=== PATIENT | male | born 1995 | race Caucasian/White ===

== ENCOUNTER 2018-02-09 11:03 | Emergency (ER) | payer OTHER, SELFPAY ==
[2018-02-09 11:04] VITALS: BP 101/56; PULSE 79; RESP 17; TEMP 37.2; O2SAT 100; BMI 24.3
--- NOTE | 2018-02-09 11:13 | CT_ITS ---
STUDY: CT ABDOMEN AND PELVIS WITH CONTRAST REASON FOR EXAM: Male, 22 years old. Trauma, lower abdominal pain and left groin pain RADIATION DOSAGE (If Supplied By Facility): CTDIvol = ( 12.65 ) mGy, DLP = ( 761.72 ) mGycm TECHNIQUE: Transaxial images were obtained from the dome of the diaphragm to the symphysis pubis without oral contrast. 100 ml of Isovue 300 contrast was administered. Sagittal and coronal images were reconstructed. Individualized dose optimization techniques were used for this CT. COMPARISON: 01/29/2016 FINDINGS: The visualized lung bases are unremarkable. The visualized portions of the heart are within normal limits. Normal liver. Normal gallbladder and extrahepatic biliary system. Normal spleen. Normal pancreas. Normal bilateral adrenal glands. Normal right kidney. Normal left kidney. Normal visualized stomach. Normal small intestine. Normal colon. The appendix is visualized and appears normal. Normal abdominal aorta. Normal inferior vena cava. Normal retroperitoneum. Normal urinary bladder. There is slight asymmetry to the lower aspect of the rectus abdominis muscles, with the left slightly cote than the right. No drainable fluid collection. Remote compression deformities are seen at T12 and L1. These were present on the prior study. CT/Abdomen/Pelvis W IV Cont ONLY IMPRESSION: No bowel obstruction or acute renal pathology. No traumatic solid organ abnormality. Slight asymmetry to the lower rectus abdominis muscles, slightly more full on the left. Question edema. No drainable fluid collection. Remote compression deformities at T12 and L1. Electronically Signed: Boston Rios DO at 12:08 EDT Tel , Service support ,
[2018-02-09] MEDS: 0.9% Normal Saline 1,000 ML 125 ML IV (11:17)
--- NOTE | 2018-02-09 11:19 | ED.VISSUMM ---
- ER Visit Summary Date of Service: 02/09/18 Chief Complaint: Groin injury History of Present Illness: The patient is a 22 M presents to the emergency department with injury to his left groin. Patient was helping someone cut down a tree. He was in a harness. The tree snapped and pulled his harness. He went directly into the tree with his left pelvis. He did not strike his testicles. This happened about an hour ago. Since then, he has had some increasing pain in his upper pubic area. It does not radiate down his legs. He denies any trouble urinating. He denies any trauma to the penis. He takes no daily medications. He denies any back pain. Physical Examination: Vital signs reviewed General: Well-nourished, well-developed Head: Normocephalic, atraumatic Eyes: Pupils equal and reactive, extraocular muscles intact Neck, supple, no lymphadenopathy Heart: Regular rate and rhythm Respiratory: No distress, clear bilaterally Abdomen: Soft, mildly tender below the suprapubic area with some ecchymosis just in the left pubic area, nondistended, no peritoneal signs exam: Normal external genitalia, no testicular tenderness, no testicular injury Back: Nontender Extremities: Nontender, no edema, no cords, 2+ symmetric femoral pulses Skin: Normal color no rash Neuro: Alert and oriented, no focal or lateralizing deficits Test Results: [] Emergency Department Course and Treatment: Patient's external genital exam was within normal limits. He did have contusion and slight hematoma over the left pubic area. With his mechanism, I did obtain a CT of the abdomen and pelvis. This did confirm hematoma of the abdominal musculature, but there was no deep injury. Patient urinated without any blood. He was given Toradol and had improvement. He is able to ambulate without pain. At this time, due to the patient is safe for discharge. Family is comfortable with plan of care. Treatment Plan: [] Disposition: Discharge Impression: 1. Abdominal wall hematoma status post trauma This note was generated with [employer] dictation software. It may contain incorrect words, spelling, and punctuation that were not noted in review of the chart prior to signing ED Disposition - Plan for ED Patient: Disposition: Home or Assisted Living Chief Complaint: Trauma Instructions: ED Abdominal Injury Blunt Benign Prescriptions: Naproxen [Naprosyn] 500 mg PO BID PRN #20 tab Cyclobenzaprine [Flexeril] 10 mg PO TID PRN #20 tab PRN Reason: Muscle Spasm Referrals: Lamin Duque [Primary Care Provider] -
[2018-02-09 11:43] LABS: Anion Gap 7 (5-15); BUN 18 mg/dL (7-18); BUN/Creat Ratio 15.7 RATIO (10-20); Chloride 107 mmol/L (98-107); Creatinine, Serum 1.15 mg/dL (0.70-1.30); EST Glomerular Filtration Rate 83 mL/min (>60); Est Glom Filt Rate - Afr Amer 101 mL/min (>60); Glucose 109 mg/dL (74-106); Potassium 4.4 mmol/L (3.5-5.1); Sodium Level 137 mmol/L (136-145)
[2018-02-09 11:44] LABS: Absolute Lymphocyte Count 1.51 X10^3/ul (0.83-4.51); Absolute Neutrophil Count 10.1 X10^3/uL (2.0-7.7); Basophil# 0.03 X10^3/uL; Basophil% 0.2 % (0-1); Eosinophil# 0.04 X10^3/uL; Eosinophils% 0.3 % (0-5); Hematocrit 43.9 % (40-54); Hemoglobin 15.6 g/dl (13.0-16.5); Lymphocyte # 1.51 X10^3/ul (4.0); Lymphocyte % 12.1 % (19-41); Mean Corp Hgb Conc 35.5 g/gl (32-36); Mean Corpuscular Hgb 31.1 pg (27.0-32.0); Mean Corpuscular Volume 87.6 fL (80-94); Mean Platelet Vol. 9.5 fl (6.2-12.0); Monocyte# 0.82 X10^3/uL; Monocyte% 6.5 % (0-10); Neutrophil % 80.7 % (47-70); Platelet Count 306 K/mm3 (150-450); RBC Distribution Width CV 12.5 % (11.6-14.6); RBC Distribution Width SD 40.1 fl (35.1-43.9); Red Blood Count 5.01 M/mm3 (4.6-6.2); White Blood Count 12.5 K/mm3 (4.4-11.0)
[2018-02-09] MEDS: Ketorolac 30 MG/ML Syringe IV (11:53)
[2018-02-09 12:09] LABS: POSITIVE COUNT NO; POSITIVE DIFFERENTIAL NO; POSITIVE MORPHOLOGY NO
[2018-02-09 12:48] LABS: Bacteria 0 SEEN /hpf (None Seen); Mucous, Urine 0 SEEN /hpf (<or=2+); Red Blood Cells-Urine 0 SEEN /hpf (0-5); Squamous Epithelial Cells - UA 0 SEEN /hpf (0-5); White Blood Cells 0 SEEN /hpf (0-5)
[2018-02-09 12:51] LABS: Color, Urine Yellow (Yellow); Glucose, Dipstick Normal (Normal); Ketone-Dipstick Negative (Negative); Leukocyte Esterase-Dipstick Negative /ul (Negative); Nitrite-Dipstick Negative (Negative); Occult Blood-Urine Negative /ul (Negative); Protein-Dipstick Negative (Negative); Urine Bilirubin Dipstick Negative (Negative); Urine Clarity Clear (Clear); Urine Urobilinogen Normal (Normal)
[2018-02-09 13:19] VITALS: BP 107/69; PULSE 96; RESP 16; O2SAT 100
== END 2018-02-09 13:20 | disposition home or self-care (01) ==
LOC: ED 11:23
PROVIDERS: Emergency Provider Emergency Medicine; Family Provider Family Medicine; PCP Family Medicine
DX: S30.1XXA Contusion of abdominal wall, initial encounter (principal); W22.8XXA Striking against or struck by other objects, initial encounter; Y93.9 Activity, unspecified; Y92.9 Unspecified place or not applicable
CPT/HCPCS: 74177; 80048; 81001; 85025; 96361; 96374; 99285; J7030; Q9967; A4216

== ENCOUNTER 2019-07-29 08:11 | Emergency (ER) | payer OTHER, SELFPAY ==
[2019-07-29] VITALS (11 sets, daily range): BP systolic 121–151; BP diastolic 55–79; PULSE 78–111; RESP 16–24; TEMP 36.6–36.7; O2SAT 95–100; BMI 25.0
--- NOTE | 2019-07-29 08:24 | RAD_ITS ---
STUDY: X-RAY - RIGHT ANKLE REASON FOR EXAM: Male, 24 years old. fell about 25 feet from a ladder today TECHNIQUE: 4 view(s) of the ankle. COMPARISON: None. FINDINGS: Acute comminuted posteriorly angulated oblique fracture of the distal shaft of the fibula. Acute transverse avulsion fractures of the base of medial malleolus of the tibia. Lateral subluxation of the tibiotalar joint. Normal visualized talus and calcaneus. The visualized subtalar, talonavicular, calcaneocuboid and tarsal articulations are normal. The soft tissue structures are unremarkable. RAD/Ankle 2 Views IMPRESSION: Acute lateral subluxation of the tibiotalar joint with a transverse avulsion fractures of the base of the medial malleolus and a comminuted oblique fracture of the distal shaft of the fibula. Electronically Signed: Frank Workman MD at 9:25 EST Tel , Service support ,
--- NOTE | 2019-07-29 08:24 | RAD_ITS ---
STUDY: X-RAY - RIGHT TIBIA AND FIBULA REASON FOR EXAM: Male, 24 years old. fell about 25 feet from a ladder today TECHNIQUE: 2 view(s) of the tibia and fibula were obtained. COMPARISON: None. FINDINGS: Acute distracted transverse avulsion fracture the base of the medial malleolus of the tibia. Acute slightly posteriorly angled comminuted oblique fracture the distal shaft of fibula. The soft tissue structures are unremarkable. RAD/Tibia & Fibula 2 Views IMPRESSION: Acute distracted transverse avulsion fracture the base of the medial malleolus of the tibia. Acute slightly posteriorly angulated comminuted oblique fracture of the distal shaft of the fibula. Electronically Signed: Frank Workman MD at 9:31 EST Tel , Service support ,
--- NOTE | 2019-07-29 08:25 | ED.DCSUM_ITS ---
History of Present Illness Chief Complaint: Fall Informant: Patient Onset: Today Mechanism/Context: Fall Quality of Pain: Dull, Aching Location: Right leg and ankle Current Severity: Mild Maximum Severity: Severe Worsened by: Attempt to move right lower extremity Associated Symptoms: Loss of function, Inability to ambulate. Negative for: Parasthesias, Weakness, Loss of consciousness Length of loss of consciousness: Negative Narrative: Patient is a 34-year-old male who presents after a fall from ladder. He states he was 25 feet above the ground. He states he attempted to roll. He landed predominantly on his right foot. He complains of pain in his right leg and ankle. He denies right knee, hip or low back pain. He denies pain in his upper extremities or left lower extremity. He denies head trauma. Denies neck pain. He denies paresthesia, anesthesia motors. He states he is unable to put any weight. Any movement of the right foot causes him pain. He last ate at 0700. He had a bowl of cereal. He reports no allergies. He is on no medication. Prior similar symptoms: No Recent Illness/Hospitalization: No - Past Medical History (1) No significant past medical history Status: Acute Past Medical History - Allergies and Home Meds Allergies/Adverse Reactions: Allergies No Known Allergies Allergy (Verified 07/29/19 08:14) Primary Care Physician: Lamin Duque [Primary Care Provider] - Prior records reviewed: Yes - Back fracture Surgical History: no surgical history Lives: With Family Smoking Status: Never smoker Alcohol: Occasional Drugs: None Review of Systems General: Denies: Chills, Fever, Sweats Eyes: Denies: Visual changes - bilaterally, Blurred Vision - bilaterally, Diplopia ENT: Reports: - - He denies ear pain or decreased hearing. Denies: Bilateral ear pain, Rhinorrhea, Sore throat Cardiovascular: Denies: Chest pain, Palpitations Respiratory: Denies: Dyspnea, Cough, Dyspnea on exertion Gastrointestinal: Denies: Abdominal pain, Nausea, Vomiting, Diarrhea, Melena, Hematochezia Genitourinary: Denies: Dysuria, Hematuria, Frequency Musculoskeletal: Reports: Swelling, Extremity Pain. Denies: Myalgias, Arthralgias, Neck pain, Back pain Skin: Denies: Rash, Wounds Neurological: Denies: Weakness, Parasthesia, Numbness Hematologic: Denies: Easy bruising, Easy bleeding Physical Exam Vital Signs/Narrative: Vital Signs Temp Pulse Resp BP Pulse Ox 07/29/19 08:13 98 F 79 16 124/76 H 95 Inital Vital Signs reviewed: Yes General: Well nourished, Well developed Head: Normocephalic, Atraumatic. Negative for: Trauma, Tenderness Eyes: Perrl, EOMI. Negative for: Pale conjunctiva, Scleral icterus ENT: TM's clear, No hemotympanum or drainage, No trauma, - - There is no clinical findings of basilar skull fracture.. Negative for: Hemotympanum, Otorrhea, Nasal trauma, Nasal septal hematoma Neck: Nontender, Full ROM. Negative for: Spinal Tenderness, Paraspinal Tenderness Cardiovascular: Regular rate, Regular rhythm, No murmurs, Normal S1, Normal S2 Respiratory: No distress, CTA bilaterally, Chest nontender. Negative for: Diminished, Decreased Air Movement Abdomen: Soft, Nontender, Nondistended, Normal bowel sounds, - - There is no pain the patient of the pelvis. Rectal: Deferred Back: Nontender. Negative for: CVA Tenderness - Right, CVA Tenderness - Left, Spinal Tenderness, Paraspinal Tenderness Extremeties: There is swelling with instability of the ankle. There is pain palpation mid to distal third of the right fibula. DP and PT pulse are palpable. There is no pain the patient base of the fifth metatarsal. There is no pain the patient over the right patella, there is no joint line tenderness. Unable to perform stress test because of instability of ankle. There is no pain the patient over the right greater trochanteric region. There is no pain the patient over the iliac wing, ischio tuberosity or pubic symphysis. Skin: Normal color, No rash, Trauma. Negative for: Cyanosis, Diaphoresis, Jaundice, No Trauma Neurological: Alert, Oriented x3, Cranial nerves II-XII grossly intact, Normal Strength, Normal Sensation. Negative for: Normal Gait - Glascow Coma Scale Eye Opening: Spontaneous Motor: Obeys Commands Verbal: Oriented Coma Scale Total: 15 Diagnostic/Tx/Re-eval Chest X-Ray - ED: Read by ED Physician 2 view x-ray of the right tibia and fibula were obtained as well as 3 view x-ray of the ankle. There is a comminuted slightly angulated distal fibular shaft fracture and there is a displaced medial malleolus fracture. Time of my interpretation 0908. Will page orthopedics since patient will require operative intervention Impressions Ankle X-Ray 07/29/19 08:24 IMPRESSION: Acute lateral subluxation of the tibiotalar joint with a transverse avulsion fractures of the base of the medial malleolus and a comminuted oblique fracture of the distal shaft of the fibula. Electronically Signed: Frank Workman MD at 9:25 EST Tel , Service support , 07/29/19 08:24 Ankle 2 Views [RAD] Stat Tibia & Fibula 2 Views [RAD] Stat 07/29/19 11:22 Xray Tibia [Tibia & Fibula 2 Views] [RAD] Stat Postreduction film was obtained. There is displacement of the fibular fracture on the lateral view. The medial malleolus is still displaced. It is improved. - Medical Decision Making X-ray of the ankle and tib-fib were obtained because there is concern for Maissonneuve fracture. Patient is presently covered in mud. Will need to undress completely and perform repeat secondary exam once he is on clothes. IV was established and he was treated with 4 mg of morphine and 15 mg of Toradol IV push. Case was discussed with orthopedics who referred me to podiatry. Spoke with Dr. Choi who is on-call for the group. Procedures - Lower Extremity Splints Lower Extremity Splint: Orthoglass, Stirrup, - - And posterior short leg Splint Fabrication: Fabricated Location: Right Procedure(s): She was consented for procedural sedation using propofol. The propofol was administered by me. Patient was explained risk benefits of propofol. He has no contraindication. Appropriate paperwork was completed. Timeout was performed before starting the procedure. Please read nurses notes for the amount administered. Patient was placed in a sugar tong and posterior Ortho-Glass splint for immobilization. He is still complaining of discomfort. I was informed that he had a drop in his blood pressure. He received 500 cc of normal saline. Start time for procedure 1050 end time 1111 ED Disposition - Plan for ED Patient: Disposition: Home or Assisted Living Diagnosis: Displaced fracture of medial malleolus of right tibia, initial encounter for closed fracture, Displaced comminuted fracture of shaft of right fibula, initial encounter for closed fracture Instructions: FRACTURE, Ankle (General) Prescriptions: Oxycodone HCl/Acetaminophen [Percocet 5/325] 1 tablet PO Q6H PRN PRN 5 Days #20 tablet PRN Reason: Pain Transmission Status: Sent to [id number] Referrals: Lamin Duque [Primary Care Provider] - Richy Choi DPM [STAFF PHYSICIAN] - As soon as possible
[2019-07-29] MEDS: Ketorolac 15 MG/ML Vial IV (08:34)
[2019-07-29] MEDS: Ondansetron 4 MG/2 ML Vial IV (08:34)
[2019-07-29] MEDS: Morphine 4 MG/ML Syringe IV (08:34)
[2019-07-29] MEDS: Propofol 200 MG/20 ML Vial IV BOLUS (10:52)
--- NOTE | 2019-07-29 11:22 | RAD_ITS ---
STUDY: X-RAY - RIGHT TIBIA AND FIBULA REASON FOR EXAM: Male, 24 years old. POST REDUCTION TECHNIQUE: 2 view(s) of the tibia and fibula were obtained. COMPARISON: 07/29/2019 at 08 50 FINDINGS: No change in the distracted transverse avulsion fracture through the base of the medial malleolus of the tibia. No change in the comminuted dorsally angulated oblique fracture the distal shaft of the fibula. Fiberglas cast which is greater soft tissue and bony detail. RAD/Tibia & Fibula 2 Views IMPRESSION: No change in fracture the medial malleolus of the tibia and the distal shaft of the fibula. Electronically Signed: Frank Workman MD at 12:18 EST Tel , Service support ,
[2019-07-29] MEDS: fentaNYL 100 MCG/2 ML Ampul 50 MCG IV (11:23)
== END 2019-07-29 12:36 | disposition home or self-care (01) ==
PROVIDERS: Emergency Provider Emergency Medicine; PCP Family Medicine
DX: S82.51XA Displaced fracture of medial malleolus of right tibia, initial encounter for closed fracture (principal); S82.431A Displaced oblique fracture of shaft of right fibula, initial encounter for closed fracture; W11.XXXA Fall on and from ladder, initial encounter; Y93.9 Activity, unspecified; Y92.9 Unspecified place or not applicable
CPT/HCPCS: 27762; 27781; 29515; 73590; 73600; 96361; 96374; 96375; 99152; 99285; J7030; J7040; A4216; J2405

== ENCOUNTER → 2019-07-29 16:49 | Outpatient (CLI) | payer OTHER, SELFPAY ==
[2019-07-29 08:13] VITALS: BMI 25.0
[2019-07-29 17:40] LABS: Absolute Lymphocyte Count 1.51 X10^3/uL (0.83-4.51); Absolute Neutrophil Count 11.8 X10^3/uL (2.0-7.7); Basophil# 0.04 X10^3/uL; Basophil% 0.3 % (0-1); Eosinophil# 0.01 X10^3/uL; Eosinophils% 0.1 % (0-5); Hematocrit 45.5 % (40-54); Hemoglobin 15.2 g/dL (13.0-16.5); Lymphocyte # 1.51 X10^3/ul (4.0); Lymphocyte % 10.4 % (19-41); Mean Corp Hgb Conc 33.4 g/dL (32-36); Mean Corpuscular Hgb 30.2 pg (27.0-32.0); Mean Corpuscular Volume 90.5 fL (80-94); Mean Platelet Vol. 9.9 fl (6.2-12.0); Monocyte# 1.07 X10^3/uL; Monocyte% 7.4 % (0-10); NRBC Flagged by Analyzer 0 % (0-5); Neutrophil # 11.81 X10^3/uL (2.7-7.7); Neutrophil % 81.4 % (47-70); Platelet Count 298 K/mm3 (150-450); RBC Distribution Width CV 12.6 % (11.6-14.6); RBC Distribution Width SD 41.2 fl (35.1-43.9); Red Blood Count 5.03 M/mm3 (4.6-6.2); White Blood Count 14.5 K/mm3 (4.4-11.0)
[2019-07-29 18:18] LABS: Anion Gap 6 (5-15); BUN 14 mg/dL (7-18); BUN/Creat Ratio 13.1 RATIO (10-20); Calcium,Total 9.4 mg/dL (8.5-10.1); Chloride 105 mmol/L (98-107); Creatinine, Serum 1.07 mg/dL (0.70-1.30); EST Glomerular Filtration Rate 89 mL/min (>60); Est Glom Filt Rate - Afr Amer 108 mL/min (>60); Glucose 102 mg/dL (74-106); Sodium Level 139 mmol/L (136-145)
== END ==
PROVIDERS: PCP Family Medicine; Referring Provider Podiatrist; Visit Provider Podiatrist
DX: Z01.818 Encounter for other preprocedural examination (principal); S82.891A Other fracture of right lower leg, initial encounter for closed fracture
CPT/HCPCS: 36415; 80048; 85025

== ENCOUNTER 2019-07-31 17:03 | Inpatient (IN) | payer OTHER, SELFPAY ==
[2019-07-29 08:13] VITALS: BMI 25.0
[2019-07-31] VITALS (11 sets, daily range): BP systolic 121–145; BP diastolic 66–86; PULSE 57–115; RESP 16–18; TEMP 36.9–37.4; O2SAT 92–100; BMI 24.7; BMI 25.4
[2019-07-31] MEDS: Lactated Ringers 1,000 ML 75 ML IV ×2 (12:25→22:57)
[2019-07-31] MEDS: Cefazolin 2 GM in 0.9% Normal Saline 100 ML IV (13:29)
--- NOTE | 2019-07-31 13:55 | RAD_ITS ---
STUDY: X-RAY - RIGHT ANKLE REASON FOR EXAM: Male, 24 years old. ORIF OF FIBULAR FX AND LATERAL MALLEOLAR FX -- -- 211.1 SECONDS OF FLUORO -- 5.93 mGy DOSE TECHNIQUE: 9 fluoroscopic view(s) of the ankle. 211.1 seconds of fluoroscopic time. COMPARISON: Prior ankle radiographs of July 29, 2019 FINDINGS: Anatomic alignment of the comminuted distal diaphyseal fracture of the fibula with lateral plate and screw fixation. Anatomic realignment and stabilization of the fracture through the base of the medial malleolus with 2 partially threaded malleolar screws. Syndesmotic fixation transversely through the distal tibia and fibula. Normal tibiotalar alignment at the completion of the procedure. Normal intraoperative soft tissue changes. RAD/Ankle min 3 Views IMPRESSION: Anatomic realignment of the distal diaphyseal fracture of the fibula with plate and screw hardware, realignment and fixation of the fracture of the distal tibia through the base of the medial malleolus with 2 partially threaded malleolar screws and syndesmotic fixation. Normal fracture and ankle alignment at the completion of the procedure. Electronically Signed: Holly Delgadillo MD at 21:10 EST , Service support ,
[2019-07-31] MEDS: Bupivacaine Mpf 0.5% 30 ML VIAL (16:55)
[2019-07-31] MEDS: Ketorolac 30 MG/ML Syringe IV (17:07)
--- NOTE | 2019-07-31 17:18 | PCM.OPRPT ---
Problem List (1) Closed displaced comminuted fracture of shaft of right fibula Status: Acute (2) Displaced fracture of medial malleolus of right tibia, initial encounter for closed fracture Status: Acute (3) Right ankle pain Status: Acute Report of Operation Date of Procedure: 07/31/19 Pre-Operative Diagnosis: Right fibular shaft fracture. Right medial malleolus fracture. Syndesmosis disruption of right ankle suspected Post-Operative Diagnosis: Right fibular shaft fracture. Right medial malleolus fracture. Syndesmosis disruption of right ankle with dislocation Surgery/Procedure Performed:: Open reduction internal fixation of fibula shaft, right. Open reduction internal fixation of medial malleolus fracture, right. Repair distal tibia-fibula syndesmosis disruption with tight rope fixation, right Description of Surgical Findings:: Hemostasis: Well-padded pneumatic right thigh tourniquet, 315 mmHg, 120 minutes Materials: 2-0 Vicryl, 3-0 nylon, one Arthrex eight hole plate with two 3.5 cortical screws and three 3.5 locking screws, two syndesmosis Arthrex tight ropes, two 4.0 cannulated short threaded screws Specimens: None Complications: None The patient tolerated the procedure and anesthesia well. He was transported to the PACU with vital signs stable and vascular status intact to the right lower extremity. He will be transferred to the medical surgical floor for observation and for pain control overnight. His postoperative orders were entered electronically. Postoperative x-rays were reviewed prior to leaving the operating room and demonstrates reduced ankle deformity in anatomic alignment with internal fixation place in desired trajectory and position. The ankle mortise is well aligned. There are no acute injuries. assistant corporation counsel: none - Surgeon:Precious Portillo DPM. Finisher Wallboard And Plasterboard: Eyad Beltran PGY1 Type of Anesthesia:: General/Regional - Right lower extremity, Local - Postoperative: 10 cc 0.5% Marcaine plain administered in saphenous nerve block, right Specimen's removed: none Estimated Blood Loss (mL): <150 mL Description of Procedure: Indications: This is a 24-year-old male with no known significant past medical history sustained a comminuted displaced fibular shaft and medial malleolus fracture with syndesmotic disruption to the right lower extremity. 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 He has pain on palpation to the fracture site. This was unstable at the time of injury and was adequately reduced while in the emergency room and splinted. X-rays demonstrate fibula shaft fracture with comminution, shortening and displacement. There is also a transverse medial malleolus ankle fracture with lateral displacement of the talus onto the tibia with some additional widening of the distal tibia and fibula. No fracture blisters were noted. His neurovascular status was intact. Preoperative indications, planned procedure, possible benefits, risk, complications, and anticipated healing time management were discussed in detail with patient. He understands and elects to proceed with surgery at this time. No guarantees were made. He understands risk and complications may include but are not limited to the following: pain, swelling, scarring, need for further surgery, infection, delayed or non healing, loss of sensation, hardware failure, loss of limb, function, life, arthritis blood clot, or allergic reaction. I answers his questions. Preoperative history and physical was performed by his primary care physician (Dr. Lamin Duque) and he was cleared without any known medical history or risk. Procedure in detail: The patient was transported to the operating room via cart and placed on the operating table in supine position. Final verification of the patient, surgery, and limb designation was performed via the timeout procedure. The right lower extremity was prepared with a well-padded thigh tourniquet. Anesthesia team initiated general anesthesia. Preoperative antibiotics were administered as ordered. Anesthesia team also administered a popliteal block of the right lower extremity preoperatively. The right lower extremity was prepped and draped in the usual aseptic manner after the limb was bumped and padded to allow good exposure. An Esmarch bandage was used to exsanguinate the limb and the tourniquet was inflated at this time. Surgery began the following manner: Attention was first directed to the distal lateral aspect of the right leg over the fracture site through the skin. Blunt dissection was performed down to the bone layer at the fracture hematoma and care was taken to identify, protect, and retract all neurovascular structures at this point and throughout the remainder of surgery. It was carefully reflected out of the way and a copeland elevator was used to gain good exposure of the fracture hematoma comminuted shortened fracture fragment site. The periosteum was preserved. This was gently mobilized and irrigated. The plate was secured distally with a temporary BB tack. A cortical screw was applied proximal to the 8 hole plate and push pull technique was performed with a lamina case finishing machine adjuster to improve the length of the fibula. Proper AO fixation technique was utilized while this plate was secured as a buttress plate with cortical and locking screws. Proper placement was confirmed with intraoperative fluoroscopy in multiple views. The comminuted shattered central fibula was secured with some Vicryl cerclage application and manual manipulation. This was irrigated. This fibula was now confirmed to be out to a more anatomic length and solid fixation was achieved. The unit moved as one solid unit. Next, attention was directed to the medial aspect of the ankle in which a 4 cm linear incision was made through the skin. Blunt dissection was performed down to the medial malleolus transverse fracture site taking care to identify, protect, and retract all neurovascular structures. The fracture fragment was identified and there was periosteal invagination. This was reflected out of the fragments. Adequate reduction was palpated and visualized with radiographs and held in place with a bone reducing forcep. The ankle joint was well aligned and the fracture fragments were also well aligned without any derotation. Two cortical screws were applied utilizing proper AO fixation technique. Next there was continued apparent laxity between the tibia and the fibula and the decision to place tight rope to reduce the syndesmosis was performed. These were applied according to standard protocol and hand tightness was used to reduce this with the ankle in a neutral position. The patient's ankle joint was taken through passive range of motion and this was smooth and gliding. Intraoperative radiographs were also used to confirm proper placement of the syndesmosis repair. The tourniquet was deflated at this time and brisk capillary refill time was noted to all digits of the right foot. There was no pulsatile bleeding noted. Minimal electrocauterization and direct pressure was used to maintain hemostasis. Deep closure was achieved with Vicryl and the skin was reapproximated utilizing simple and horizontal mattress technique with nylon suture. After procedure: The atient tolerated the procedure and anesthesia well. He was transported to the PACU with vital signs stable and vascular status intact to the right lower extremity. He will be transferred to the medical surgical floor for observation and for postoperative pain management. He will also be provided with IV and oral pain medication if needed. He will ice and elevate for pain inflammation management. He will work with physical and occupational therapy to confirm he can maintain a nonweightbearing status with an assistive device. Intraoperative x-rays were reviewed prior to leaving the operating room as previously. Postoperative orders were entered electronically. Precious Portillo DPM, [facility] [place] - Complications none - Admit VTE Documentation VTE Present on Admission: No VTE Mechan Device Prophylaxis: SCD's VTE Pharm Prophylaxis ordered?: No Reason prophylaxis not ordered:: Procedure Not Indicated
--- NOTE | 2019-07-31 17:35 | RAD_ITS ---
STUDY: X-RAY - RIGHT ANKLE REASON FOR EXAM: Male, 24 years old. post-op right ankle TECHNIQUE: 3 view(s) of the ankle. COMPARISON: Prior ankle radiographs of July 29, 2019 FINDINGS: Anatomic alignment of a comminuted fracture of the distal diaphysis of the fibula repaired with plate and screw hardware. Anatomic reduction of the fracture of the distal tibia across the base of the medial malleolus with 2 partially threaded malleolar screws. Syndesmotic fixation 1.6 cm above and 5.5 cm above the tibial plafond. Normal visualized talus and calcaneus. The visualized subtalar, talonavicular, calcaneocuboid and tarsal articulations are normal. Normal postoperative soft tissue changes. RAD/Ankle min 3 Views IMPRESSION: Anatomic realignment and hardware fixation of distal diaphyseal fracture of the fibula and fracture of the distal tibia across the base of the medial malleolus with syndesmotic fixation as described above. No acute bone, joint or hardware findings. Electronically Signed: Holly Delgadillo MD at 22:35 EST , Service support ,
[2019-07-31] MEDS: Ondansetron 4 MG/2 ML Vial IV (20:47)
--- NOTE | 2019-07-31 21:39 | PCM.HP.STD ---
Problem List (1) Closed displaced comminuted fracture of shaft of right fibula Status: Acute (2) Displaced fracture of medial malleolus of right tibia, initial encounter for closed fracture Status: Acute (3) Right ankle pain Status: Acute History of Present Illness Date of Admission: 07/31/19 Chief Complaint: Right ankle fracture The patient is a 24 year old M with no known significant past medical history that was admitted postoperative right ankle open reduction internal fixation. He sustained a fall from over 20 foot height off of a ladder on 07/29/2019. He denies other injuries at that time. Past Medical History Allergies No Known Allergies Allergy (Verified 07/30/19 14:22) Home Medications: Ambulatory Orders Medication Instructions Recorded Oxycodone HCl/Acetaminophen 1 tab PO Q6H PRN PRN 5 Days #20 tab 07/29/19 [Percocet 5/325] Surgical History: - - Hand tendon repair Lives: Spouse/ Significant Other, With Family Smoking Status: Never smoker Tobacco Use: Non-smoker Alcohol: Occasional - 5 beers per weekend Drugs: None - *Family History Maternal History Items: No pertinent history Paternal History Items: No pertinent history Review of Systems Constitutional: Denies: Chills, Fever Cardiovascular: Denies: Claudication Respiratory: Denies: Shortness of Breath Gastrointestinal: Reports: Nausea. Denies: Vomiting Musculoskeletal: Reports: Joint Tenderness Skin: Denies: Wounds Neurological: Denies: Numbness Hematologic/ Lymphatic: Denies: Hx of blood clot VTE Information - Inpt Only VTE Present on Admission: No VTE Mechan Device Prophylaxis: SCD's VTE Pharm Prophylaxis ordered?: No Reason prophylaxis not ordered:: Procedure Not Indicated Patient Problems: Active and Suspected Problems Closed displaced comminuted fracture of shaft of right fibula (Acute) Displaced fracture of medial malleolus of right tibia, initial encounter for closed fracture (Acute) Right ankle pain (Acute) - Physical Exam Vitals/I&O's: Vital Signs Temp Pulse Resp BP Pulse Ox 98.4 F 91 18 121/73 H 100 07/31/19 21:02 07/31/19 21:02 07/31/19 21:02 07/31/19 21:02 07/31/19 21:02 Oxygen Flow Rate (L/min) 2 Oxygen Delivery Method Room Air Weight: 73.6 kg Body Mass Index (BMI) 25.4 Intake and Output for Last 24 Hours 07/29/19 07/30/19 07/31/19 23:59 23:59 23:59 Intake Total 1110 / 1110 Balance 1110 / 1110 General: Alert, Oriented x3, Cooperative HEENT: Atraumatic, EOMI Oral: Moist Mucosa Lungs: Clear to auscultation Cardiovascular: Regular rate, Regular Rhythm Extremities: No cyanosis, Capillary Refill Less than 3 Seconds, No Calf Tenderness, Edema, Peripheral Pulses Normal - Palpable DP and PT pulses Skin: - - No fracture blisters noted prior to surgery. Ecchymosis was present to the medial ankle. Incisions intact postop to medial lateral ankle Musculoskeletal: No Tenderness to Palpation of Joints or Extremities, No Muscle Wasting Neurological: - - Regional anesthetic block to right lower extremity postop Psych/Mental Status: Normal Affect, Appropriate Current Medications Hydrocodone Bitart/Acetaminophen ([place] 5mg-325mg) 1 - 2 tablet PO Q6H PRN PRN PRN Reason: Pain Score 1-5/10 Docusate Sodium (Colace) 100 mg PO BID PRN PRN PRN Reason: Constipation Famotidine (Pepcid) 20 mg PO BID [facility] Last Admin: 07/31/19 21:07 Dose: Not Given Documented by: Lactated Ringer's () 1,000 mls @ 75 mls/hr IV .[id number] [facility] Last Admin: 07/31/19 12:25 Dose: 75 mls/hr Documented by: Morphine Sulfate () 2 mg IV Q2H PRN PRN PRN Reason: Pain Score 6-10/10 Ondansetron HCl (Zofran) 4 mg IV Q8H PRN PRN PRN Reason: Nausea Last Admin: 07/31/19 20:47 Dose: 4 mg Documented by: Assessment/Plan All Active Problems No significant past medical history (Acute) Closed displaced comminuted fracture of shaft of right fibula (Acute) Displaced fracture of medial malleolus of right tibia, initial encounter for closed fracture (Acute) Right ankle pain (Acute) Postoperative day #0, right open reduction internal fixation of distal fibula shaft fracture, medial malleolus fracture, and distal tibia fibula syndesmosis disruption Right ankle pain He underwent surgical correction this afternoon and was admitted postoperative for pain control. He does have a regional right lower extremity block in place. He also has IV morphine and oral [place] ordered if needed. He was also offered a dose of Toradol in the immediate postoperative setting. To ice and elevate for pain and inflammation management. To maintain a strict nonweightbearing status of the right lower extremity. He will work with physical and occupational therapy tomorrow to confirm he can use his assistive devices properly. X-rays were reviewed postoperatively prior to leaving the operating room and reduction of the injury site was achieved with desired position of hardware. His ankle mortise is intact and there are no additional acute injuries. His postoperative orders were entered electronically. A vitamin D test will be ordered to screen for any deficiency which would potential impact healing potential. I will follow him closely while in house. Please do not hesitate to call if you any questions. Precious Portillo DPM, FACFAS [facility] [phone] code status: full
[2019-07-31] MEDS: Famotidine 20 MG Tablet PO (22:50)
[2019-07-31] MEDS: Docusate Sodium 100 MG Capsule PO (22:50)
[2019-07-31] MEDS: Morphine 2 MG/ML Syringe IV (22:50)
[2019-08-01] VITALS (8 sets, daily range): BP systolic 111–144; BP diastolic 63–95; PULSE 79–104; RESP 16–20; TEMP 36.8–37.4; O2SAT 97–98
[2019-08-01] MEDS: Morphine 2 MG/ML Syringe IV ×2 (02:52→05:05)
[2019-08-01] MEDS: HYDROcodone Bitartrate/Apap 5/325 Tablet PO ×2 (05:55→11:09)
[2019-08-01] MEDS: Ondansetron 4 MG/2 ML Vial IV (05:57)
--- NOTE | 2019-08-01 06:40 | NURSING ---
Sunitha, RN gave patient 2mg Morphine IVP for pain 9/10 at 0505. Later, while in hallway, Sunitha saw patient's mother and she stated I think his block is wearing off, can't we just give him some Fentanyl? Sunitha assured the mother that Fentanyl was not ordered but she could reach out to the podiatry team in regards to more pain relief options. At 0550, Sunitha had Dr. Choi paged through the lathe scalper operator. (He was physician operations superintendent for Dr. Portillo). She then went into patient room and administered (2) [place] at 0555 for pain 10/10. Around 0615, Sunitha was pulled away from the desk, for care of another patient. She informed this RN that Dr. Choi had yet to return call. This RN had Dr. Choi paged via lathe scalper operator at 0619. While on the phone, Dr. Choi informed this RN that he did not feel comfortable ordering pain meds for another physician's patient. He gave this RN two options: 1. He, himself, could notify her in the clinic early this morning regarding pain concerns or 2. This RN could try overriding the lathe scalper operator's instructions and page Dr. Portillo around 0645, as she may be awake at that time. Conversation ended with Dr. Choi at this time and no new orders were given. Patient's mother came out to nurses' station roughly 0622 and wondered where we were in the process of getting her son pain meds. This RN informed her that the surgeon operations superintendent did not feel comfortable giving orders and that the primary physician would be notified. She states this is ridiculous and these doctors need to quit punting! At 0623 the lathe scalper operator was notified that the floor needed to speak with Dr. Portillo, despite her not being operations superintendent. A text was sent to Dr. Portillo per lathe scalper operator. In the mean time, Mr Palmer (patient) called the [facility] charge phone and spoke with this RN. He asked when am I getting more pain meds? I am miserable and wanting to jump out of the bed. This RN assured that we can only give what is ordered and that we were working on the situation. At 0630 this RN called back to lathe scalper operator and let her know that Dr. Portillo had yet to call the floor. She then put this RN directly through to her cellphone. New orders received for 3mg Morphine IVP q2h prn and 30mg Toradol IVP q8h prn. Orders were immediately entered into the computer and this RN called pharmacy to let pharmacist know that these meds needed verified immediately. At 0634, this RN pulled Krystina RN into med room to be a witness to Morphine waste. Before door could shut on way in, patient mother standing in doorway, very upset, stating I have contacted Dr. Lunsford and he has agreed to do another block. I am taking him down now. This RN informed her that new orders for Morphine and Toradol had been received and I would be in immediately to push the meds. She stated Those meds will not do anything. This RN left med room and patient mother already had bed disconnected from wall in room and was steering bed out into hallway. 0635: Dr. Portillo notified by this RN that patient's mother had removed him from the room and took him down to PACU for another block.
[2019-08-01] MEDS: fentaNYL 100 MCG/2 ML Ampul IV (06:47)
[2019-08-01] MEDS: Famotidine 20 MG Tablet PO ×2 (09:24→21:25)
[2019-08-01] MEDS: Ketorolac 30 MG/ML Syringe IV ×2 (09:26→17:32)
[2019-08-01] MEDS: Docusate Sodium 100 MG Capsule PO ×2 (09:26→21:25)
--- NOTE | 2019-08-01 12:54 | PN_ITS ---
Patient Problems: Active and Suspected Problems Closed displaced comminuted fracture of shaft of right fibula (Acute) Displaced fracture of medial malleolus of right tibia, initial encounter for closed fracture (Acute) Right ankle pain (Acute) Subjective: This 24-year-old male with no significant past medical history was seen bedside this afternoon postoperative day #1 right ankle open reduction internal fixation. His pain is controlled at this time. It is noted he had an additional right lower extremity regional block performed this morning. He denies fever, chill, nausea, vomiting, chest pain, shortness of breath, calf pain. - Physical Exam Vitals/I&O's: Vital Signs Temp Pulse Resp BP Pulse Ox 98.3 F 87 16 111/63 97 08/01/19 11:37 08/01/19 11:37 08/01/19 11:37 08/01/19 11:37 08/01/19 11:37 Oxygen Flow Rate (L/min) 2 Oxygen Delivery Method Room Air Weight: 73.6 kg Body Mass Index (BMI) 25.4 Intake and Output for Last 24 Hours 07/30/19 07/31/19 08/01/19 23:59 23:59 23:59 Intake Total 1900 / 1900 1360 / 1360 Output Total 400 / 400 Balance 1900 / 1900 960 / 960 General: Alert, Oriented x3, Cooperative HEENT: Atraumatic Lungs: Clear to auscultation, Normal air movement Cardiovascular: Regular rate, Regular Rhythm Extremities: No cyanosis, Capillary Refill Less than 3 Seconds, No Calf Tenderness - Negative Verdugo sign bilateral lower extremity, Peripheral Pulses Normal - Palpable DP pulse right Skin: - - Dressing and splint to the right lower extremity are clean, dry, and intact without strikethrough or adjacent streaking Musculoskeletal: - - Rectus right ankle in splint. Compartments are soft to palpate right Neurological: - - Lack of epicritic sensation is noted to the right digits consistent with his recent regional block Psych/Mental Status: Normal Affect, Appropriate Laboratory Results 08/01/19 05:25: Vit D 1,25-Dihydroxy Pending Current Medications Hydrocodone Bitart/Acetaminophen ([place] 5mg-325mg) 1 - 2 tablet PO Q6H PRN PRN PRN Reason: Pain Score 1-5/10 Last Admin: 08/01/19 11:09 Dose: 2 tablet Documented by: Docusate Sodium (Colace) 100 mg PO BID PRN PRN PRN Reason: Constipation Last Admin: 08/01/19 09:26 Dose: 100 mg Documented by: Famotidine (Pepcid) 20 mg PO BID [facility] Last Admin: 08/01/19 09:24 Dose: 20 mg Documented by: Ketorolac Tromethamine (Toradol (Bkc)) 30 mg IV Q8H PRN PRN PRN Reason: Pain Score 1-10/10 Stop: 08/06/19 06:34 Last Admin: 08/01/19 09:26 Dose: 30 mg Documented by: Morphine Sulfate () 3 mg IV Q2H PRN PRN PRN Reason: Pain Score 6-10/10 Ondansetron HCl (Zofran) 4 mg IV Q8H PRN PRN PRN Reason: Nausea Last Admin: 08/01/19 05:57 Dose: 4 mg Documented by: Medical Necessity - Tobacco Use Smoking Status: Never smoker Tobacco Use: Non-smoker Assessment/Plan All Active Problems No significant past medical history (Acute) Closed displaced comminuted fracture of shaft of right fibula (Acute) Displaced fracture of medial malleolus of right tibia, initial encounter for closed fracture (Acute) Right ankle pain (Acute) Postoperative day #1 right open reduction internal fixation ankle fracture (fibular shaft, medial malleolus, and syndesmosis disruption) Right ankle pain I reviewed and discussed his case. He is afebrile and his vital signs remained stable. His dressing and splint are intact. His pain is controlled. He had an additional right lower extremity regional block performed this morning and it is anticipated to start wearing off again this evening. IV and oral pain medications were additionally ordered including oral narcotic, IV morphine, and Toradol. I recommend he continues with icing and elevation to control inflammation and pain. To maintain a strict nonweightbearing status to the right lower extremity with assistive device. He did work with physical therapy this morning and it went very well. Upon continued pain control, this patient will be discharged home this evening or tomorrow. He will follow-up with the [facility] in 1 week. Please not hesitate to call if you have any questions. Precious Portillo DPM, FACF[facility] [phone]
[2019-08-01] MEDS: oxyCODONE 5 MG Tablet PO ×2 (16:46→20:46)
[2019-08-01] MEDS: Morphine 4 MG/ML Syringe IV (18:39)
[2019-08-01] MEDS: HYDROmorphone 1 MG/ML Syringe IV ×3 (19:50→23:37)
[2019-08-01] MEDS: LORazepam 1 MG Tablet PO (21:25)
[2019-08-02] VITALS (20 sets, daily range): BP systolic 120–144; BP diastolic 73–88; PULSE 73–91; RESP 14–18; TEMP 36.6–37.5; O2SAT 93–99
[2019-08-02] MEDS: oxyCODONE 5 MG Tablet PO ×3 (01:00→14:41)
[2019-08-02] MEDS: Ketorolac 30 MG/ML Syringe IV ×3 (01:05→16:58)
[2019-08-02] MEDS: HYDROmorphone 1 MG/ML Syringe IV ×4 (01:38→07:38)
[2019-08-02] MEDS: Docusate Sodium 100 MG Capsule PO ×2 (07:54→21:12)
--- NOTE | 2019-08-02 08:53 | NURSING ---
Pain issue overnight. Dilaudid, Oxy, and Toradol all given when available as prn. Mother of patient kept pushing to give the pain meds early. Patient seemed much more relaxed and less painful when mother was out of room. As the night progressed, patient said he was getting relief for the Dilaudid and rated his pain 5/10. Mother was at the nurses station very often overnight concerned with son's pain. Mother called Noa, supervisor specialty plant, into the room. Noa talked with the mother and patient and asked if it was ok to keep doing what we are doing [with Dilaudid, Oxy, and Toradol].
[2019-08-02] MEDS: Famotidine 20 MG Tablet PO ×2 (09:19→21:12)
[2019-08-02] MEDS: LORazepam 1 MG Tablet PO (09:19)
--- NOTE | 2019-08-02 09:25 | NURSING ---
0958 pt requested to talk to Dr Bynum, Dr Choi it covering and he was paged. He deferred to her and she called this nurse, she was informed pain is not being controlled and pt wants to talk to her. She increased Dilaudid, was informed mother requested fentanyl, and was informed that it can be administered on this unit. She wants to increase the Dilaudid first, and will see the pt in a short time and take the drsg down. Dr. Lee talked to patient, discussed the plan with him.
[2019-08-02] MEDS: 0.9% Saline Lock 10 ML Syringe IV ×3 (10:09→16:58)
--- NOTE | 2019-08-02 11:16 | PCM.PROGNOTE ---
Patient Problems: Active and Suspected Problems Closed displaced comminuted fracture of shaft of right fibula (Acute) Displaced fracture of medial malleolus of right tibia, initial encounter for closed fracture (Acute) Right ankle pain (Acute) Subjective: This 24-year-old male with no significant past medical history was seen bedside this afternoon postoperative day #2 right ankle open reduction internal fixation. His pain is rated as a 6 out of 10. I was contacted around 9:10 this morning and informed his pain was not completely controlled overnight and this has recently been exacerbated after a trip to the restroom. I increased Dilaudid dose verbally over the phone. This was administered over an hour ago and he relates he thinks he may be starting to turn a corner however is concerned that this will still not be enough. He describes his pain as a generalized crushing sensation to the ankle. He does not think his splint is too tight however is amendable to have a dressing change to further evaluate for any signs of potential infection, compartment syndrome, nerve irritation, or blood clot. He denies stumbling or falling on the surgical limb. He continues to elevate. He denies fever, chill, nausea, vomiting, chest pain, shortness of breath, calf pain. He relates he uses his incentive spirometer at times. His mother is bedside. She asks if fentanyl can be administered at this time. - Physical Exam Vitals/I&O's: Vital Signs Temp Pulse Resp BP Pulse Ox 98.4 F 90 16 132/80 H 95 08/02/19 05:37 08/02/19 07:50 08/02/19 05:37 08/02/19 05:37 08/02/19 07:01 Oxygen Flow Rate (L/min) 2 Oxygen Delivery Method Room Air Weight: 73.6 kg Body Mass Index (BMI) 25.4 Intake and Output for Last 24 Hours 07/31/19 08/01/19 08/02/19 23:59 23:59 23:59 Intake Total 1899 200 / 200 Output Total 400 / 800 800 / 800 Balance 1899 1610 / 1210 -600 / -600 General: Alert, Oriented x3, Cooperative HEENT: Atraumatic Lungs: Clear to auscultation Cardiovascular: Regular rate, Regular Rhythm Extremities: No cyanosis, No Calf Tenderness - negative tenorio sign right, Edema - moderate to ankle; no leg edema, right lower extremity, Peripheral Pulses Normal - 2/4 PT and DP pulses, right Skin: Incision - well aligned and coapted with sutures intact. no gapping, no infection, no necrosis noted. medial ankle ecchymosis consistent with properative ecchymosis pattern. Skin turgor normal, - - There is no calor, warmth, or edema to the calf Musculoskeletal: No Tenderness to Palpation of Joints or Extremities, Muscle Wasting, - - Active range of motion digits right. Compartments of the lower extremity are soft to palpate. There is no skin tenting. Right lower extremity is in a rectus position Neurological: Sensory exam intact to light touch and pain - Epicritic sensation is intact via light touch to foot and ankle and lower leg dermatomes Psych/Mental Status: Normal Affect, Appropriate Current Medications Bisacodyl (Dulcolax) 10 mg PO .X1 PRN PRN PRN Reason: See label comments Diphenhydramine HCl (Benadryl) 12.5 - 25 mg IV Q6H PRN PRN PRN Reason: ITCHING Diphenhydramine HCl (Benadryl) 12.5 - 25 mg PO Q6H PRN PRN PRN Reason: Pruritis Docusate Sodium (Colace) 100 mg PO BID PRN PRN PRN Reason: Constipation Last Admin: 08/02/19 07:54 Dose: 100 mg Documented by: Famotidine (Pepcid) 20 mg PO BID [facility] Last Admin: 08/02/19 09:19 Dose: 20 mg Documented by: Hydromorphone HCl (Dilaudid Biology Adjunct Instructor) 20 mg IV [facility]; Protocol Naloxone HCl 4 mg/ Dextrose 504 mls @ 0 mls/hr IV .Q0M PRN; Protocol PRN Reason: To maintain Resp. rate >10 Sodium Chloride () 250 mls @ 15 mls/hr IV .[id number] PRN PRN Reason: Saline Flush Last Admin: 08/02/19 10:09 Dose: 15 mls/hr Documented by: Sodium Chloride () 250 mls @ 15 mls/hr IV .[id number] PRN PRN Reason: Additional IVPB Infusion Ketorolac Tromethamine (Toradol (Bkc)) 30 mg IV Q8H PRN PRN PRN Reason: Pain Score 1-10/10 Stop: 08/06/19 06:34 Last Admin: 08/02/19 08:59 Dose: 30 mg Documented by: Lorazepam (Ativan) 1 mg PO Q12H PRN PRN PRN Reason: ANXIETY Last Admin: 08/02/19 09:19 Dose: 1 mg Documented by: Naloxone HCl (Narcan) 0.02 mg IV Q1M PRN PRN Reason: RR <10 and pt unresponsive Ondansetron HCl (Zofran) 4 mg IV Q8H PRN PRN PRN Reason: Nausea Last Admin: 08/01/19 05:57 Dose: 4 mg Documented by: Oxycodone HCl (Oxyir) 5 mg PO Q4H PRN PRN PRN Reason: Pain Score 1-10/04 Last Admin: 08/02/19 05:25 Dose: 5 mg Documented by: Sodium Chloride () 10 - 40 ml IV UD PRN PRN Reason: SALINE FLUSH Last Admin: 08/02/19 10:09 Dose: 40 ml Documented by: Medical Necessity - Tobacco Use Smoking Status: Never smoker Tobacco Use: Non-smoker Assessment/Plan All Active Problems No significant past medical history (Acute) Closed displaced comminuted fracture of shaft of right fibula (Acute) Displaced fracture of medial malleolus of right tibia, initial encounter for closed fracture (Acute) Right ankle pain (Acute) Postoperative day #2 right open reduction internal fixation ankle fracture (fibular shaft, medial malleolus, and syndesmosis disruption) secondary to fall from height mechanism of injury Right ankle pain I reviewed and discussed his case. He is afebrile and his vital signs remained stable. His dressing and splint are intact. IV and oral pain medications have been sequentially increased and modified. He intermittently thinks he is starting to turn a corner however is still struggling. I offered Dilaudid TECHNICAL SOLUTION ARCHITECT and he is amenable to proceed at this time. He will also continue with oral oxycodone and IV Toradol. He is also taking Ativan. I do not recommend administering fentanyl or ketamine at this time as requested by family. I recommend he continues with icing and elevation to control inflammation and pain. I will confirm if pain management consultation is possible on the weekend. His surgical dressing and splint were removed to evaluate the limb and there are no clinical signs of blood clot, infection, isolated nerve entrapment, or compartment syndrome. A new gauze and Kerlix dressing was applied. His previous well-padded posterior mold was placed with the right lower extremity in a rectus position and this was further secured with an Antonio wrap. He was advised to maintain a strict nonweightbearing status to the right lower extremity with assistive device. To use incentive spirometer hourly while awake. Please do not hesitate to call if you have any questions. We will continue to follow him closely while in house. I also verbally reviewed the case with his nurse, Prince. We discussed our next action plan and I requested to be contacted directly if his pain is still not improving. Precious Portillo DPM, FACF[facility] [phone]
--- NOTE | 2019-08-02 11:30 | NURSING ---
[id number]- Spoke to Dr. Portillo on the phone regarding the patient. Notified that patients pain is very tolerable at this time and is not expressing any other issues. Dr. Portillo stated to call her at anytime if pain becomes out of control or if other issues arise.
--- NOTE | 2019-08-02 12:09 | NURSING ---
Called Tonya the pharmacy and asked her to send the Dilaudid bag for experienced truck driver pump. Said she was grabbing it right now.
[2019-08-02] MEDS: HYDROmorphone PCA 0.2 MG/ML 100 ML BAG 20 MG IV (12:36)
--- NOTE | 2019-08-02 16:39 | NURSING ---
1430 Now rates pain 12/04, states it is better, but thinks it could be better. Dr. Lee paged.
[2019-08-02] MEDS: Gabapentin 100 MG Capsule 200 MG PO (18:07)
[2019-08-02] MEDS: Bisacodyl 5 MG Tablet 10 MG PO (18:22)
[2019-08-03] VITALS (23 sets, daily range): BP systolic 117–133; BP diastolic 61–80; PULSE 74–95; RESP 14–18; TEMP 36.9–37.2; O2SAT 94–98
[2019-08-03] MEDS: Gabapentin 100 MG Capsule 200 MG PO ×3 (07:48→16:48)
[2019-08-03] MEDS: Famotidine 20 MG Tablet PO (07:49)
--- NOTE | 2019-08-03 09:28 | NURSING ---
ordnance keeper pump settings verified for Prince PRimary RN. Dilaudid 0.3mg lockout 12minutes.
--- NOTE | 2019-08-03 10:06 | PCM.PROGNOTE ---
Patient Problems: Active and Suspected Problems Closed displaced comminuted fracture of shaft of right fibula (Acute) Displaced fracture of medial malleolus of right tibia, initial encounter for closed fracture (Acute) Right ankle pain (Acute) Subjective: This 24-year-old male with no significant past medical history was seen bedside this morning postoperative day #3 right ankle open reduction internal fixation. His pain is rated as a 2 out of 10. He continues to elevate the surgical limb. He denies fever, chill, nausea, vomiting, chest pain, shortness of breath, or calf pain. He has a little generalized numbness and relates the crushing feeling is going away. He relates he uses his incentive spirometer. He has not had a bowel movement and denied previous constipation. His family is bedside. - Physical Exam Vitals/I&O's: Vital Signs Temp Pulse Resp BP Pulse Ox 98.9 F 81 14 119/61 98 08/03/19 09:59 08/03/19 09:59 08/03/19 09:59 08/03/19 09:59 08/03/19 09:59 Oxygen Flow Rate (L/min) 2 Oxygen Delivery Method Room Air Weight: 73.6 kg Body Mass Index (BMI) 25.4 Intake and Output for Last 24 Hours 08/01/19 08/02/19 08/04/19 23:59 23:59 00:59 Intake Total 2009 500 / 500 987.25 / 987.25 Output Total 400 / 800 2009 Balance 1610 / 1210 -1510 / -1510 987.25 / 987.25 General: Alert, Oriented x3, Cooperative HEENT: Atraumatic Lungs: Clear to auscultation, Normal air movement Cardiovascular: Regular rate, Regular Rhythm Extremities: No cyanosis, Capillary Refill Less than 3 Seconds - all digits right foot, No Calf Tenderness - negative tenorio sign bilateral, Edema - mild right lower extremity, Peripheral Pulses Normal - palpable DP pulse 2/4 right Skin: - - dressing right lower extremity is clean, dry, and intact without strikethrough Musculoskeletal: Tenderness - surgical site, - - AROM digits right foot. Right ankle is in rectus position Neurological: Sensory exam intact to light touch and pain - all digits and foot dermatomes right foot and ankle Psych/Mental Status: Normal Affect, Appropriate Current Medications Bisacodyl (Dulcolax) 10 mg PO .X1 PRN PRN PRN Reason: See label comments Last Admin: 08/02/19 18:22 Dose: 10 mg Documented by: Diphenhydramine HCl (Benadryl) 12.5 - 25 mg PO Q6H PRN PRN PRN Reason: Pruritis Docusate Sodium (Colace) 100 mg PO BID PRN PRN PRN Reason: Constipation Last Admin: 08/02/19 21:12 Dose: 100 mg Documented by: Famotidine (Pepcid) 20 mg PO BID [facility] Last Admin: 08/03/19 07:49 Dose: 20 mg Documented by: Gabapentin (Neurontin) 200 mg PO TIDCM [facility] Last Admin: 08/03/19 07:48 Dose: 200 mg Documented by: Hydromorphone HCl (Dilaudid Reclaimer) 20 [place] [facility] [place] Protocol Last Admin: 08/02/19 12:36 Dose: 20 mg Documented by: Naloxone HCl 4 mg/ Dextrose 504 mls @ 0 mls/hr IV .Q0M PRN; Protocol PRN Reason: To maintain Resp. rate >10 Sodium Chloride () 250 mls @ 15 mls/hr IV .[id number] PRN PRN Reason: Saline Flush Last Admin: 08/03/19 03:38 Dose: 15 mls/hr Documented by: Sodium Chloride () 250 mls @ 15 mls/hr IV .[id number] PRN PRN Reason: Additional IVPB Infusion Ketorolac Tromethamine (Toradol (Bkc)) 30 mg IV Q8H PRN PRN PRN Reason: Pain Score 1-10/10 Stop: 08/06/19 06:34 Last Admin: 08/02/19 16:58 Dose: 30 mg Documented by: Lorazepam (Ativan) 1 mg PO Q12H PRN PRN PRN Reason: ANXIETY Last Admin: 08/02/19 09:19 Dose: 1 mg Documented by: Naloxone HCl (Narcan) 0.02 mg IV Q1M PRN PRN Reason: RR <10 and pt unresponsive Ondansetron HCl (Zofran) 4 mg IV Q8H PRN PRN PRN Reason: Nausea Last Admin: 08/01/19 05:57 Dose: 4 mg Documented by: Oxycodone HCl (Oxyir) 5 mg PO Q6H PRN PRN PRN Reason: Pain Score 6-10/10 Last Admin: 08/02/19 14:41 Dose: 5 mg Documented by: Sodium Chloride () 10 - 40 ml IV UD PRN PRN Reason: SALINE FLUSH Last Admin: 08/02/19 16:58 Dose: 10 ml Documented by: Medical Necessity - Tobacco Use Smoking Status: Never smoker Tobacco Use: Non-smoker Assessment/Plan All Active Problems No significant past medical history (Acute) Closed displaced comminuted fracture of shaft of right fibula (Acute) Displaced fracture of medial malleolus of right tibia, initial encounter for closed fracture (Acute) Right ankle pain (Acute) Postoperative day #3 right open reduction internal fixation ankle fracture (fibular shaft, medial malleolus, and syndesmosis disruption) secondary to fall from height mechanism of injury Right ankle pain I reviewed and discussed his case. He is afebrile and his vital signs remained stable. His dressing and splint are intact. IV and oral pain medications have been sequentially increased and modified. He is doing much better this morning. I recommend he continues with icing and elevation to control inflammation and pain. I recommending we start weaning him off of the ELEVATOR OPERATOR FREIGHT pump this afternoon to transition to oral medications. He is amendable to proceed. The ELEVATOR OPERATOR FREIGHT dose has been decreased and I will call back in later to make serial adjustments. Pain management was consulted who is available for evaluation on Sunday. The case was briefly reviewed via phone yesterday afternoon with this physician and if the patient is still in house on Sunday, the evaluation will be appreciated. Discharge medications have been picked up from [facility] retail pharmacy (percocet and naproxen) and additional medications have been sent to [facility] (neurontin and docusate). He was advised to maintain a strict nonweightbearing status to the right lower extremity with assistive device. To use incentive spirometer hourly while awake. Vitamin D results are still pending. Discharge later today or tomorrow pending continued pain control. Please do not hesitate to call if you have any questions. I will continue to follow him closely while in house. Precious Portillo DPM, FACFAS [facility] [phone]
--- NOTE | 2019-08-03 10:48 | DCINST_ITS ---
Discharge Diet: No Restrictions Discharge Activity: May not drive while taking narcotic pain medications., May Not Shower - unless using shower bag, Use Walker, Use Crutches, - - Use knee roller Weight Bearing Status: No weight bearing Keep extremity elevated above heart level: Right Leg Call your doctor if your incision/area has: Continuous Slow Oozing, Sudden Increased Bleeding, Increased Pain/ Swelling, Increased Redness, Foul Smelling Discharge, Swelling at the incision site Call your doctor if you observe: Fever of 101 or Higher, Coldness, Increased Pain, Numbness or Tingling, Shortness of breath, Chest pain, Calf discomfort, Uncontrolled pain Cleanse incision/area with: Keep Dressing Clean & Dry Allergies/Adverse Reactions: Allergies No Known Allergies Allergy (Verified 07/30/19 14:22) Medications to take at Discharge Oxycodone HCl/Acetaminophen [Percocet 5/325] 1 tab PO Q6H PRN PRN 5 Days #20 tab 07/29/19 Naproxen 500 mg PO BID 7 Days #14 tab 08/01/19 Oxycodone HCl/Acetaminophen [Percocet 10-325 mg Tablet] 1 tab PO Q6H PRN PRN 5 Days #30 tab 08/01/19 Docusate Sodium 100 mg PO BID PRN 10 Days #20 cap 08/03/19 Gabapentin [Neurontin] 200 mg PO TID 10 Days #30 cap 08/03/19 The following prescriptions were given: Docusate Sodium 100 mg PO BID PRN 10 Days #20 cap PRN Reason: Constipation Transmission Status: Received by [id number] Naproxen 500 mg PO BID 7 Days #14 tab Transmission Status: Sent to [facility] Gabapentin [Neurontin] 200 mg PO TID 10 Days #30 cap Transmission Status: Received by [id number] Oxycodone HCl/Acetaminophen [Percocet 10-325 mg Tablet] 1 tab PO Q6H PRN PRN 5 Days #30 tab PRN Reason: Pain Score 6-10/10 Transmission Status: Sent to [facility] Primary Care Physician: Lamin Duque [Primary Care Provider] - Test Results: Test results from this visit will be discussed in further detail at your follow- up appointment, if applicable. Please Follow Up With: Precious Portillo DPM When: 1 week. Call [facility] at [phone] sooner if concerns. Proposed Discharge Date: 08/03/19
--- NOTE | 2019-08-03 10:50 | PCM.DC.SUM ---
Discharge Date and Diagnosis Date of Admission: 07/31/19 Date of Discharge: 08/03/19 - Primary Discharge Diagnosis Active and Suspected Problems Closed displaced comminuted fracture of shaft of right fibula (Acute) Displaced fracture of medial malleolus of right tibia, initial encounter for closed fracture (Acute) Right ankle pain (Acute) - Secondary Discharge Diagnosis no significant past medical history Hospital Course and Treatment Imaging Results: Post operative ankle x-ray (3 view: AP, mortise, lateral): Status post open reduction internal fixation of distal fibula shaft comminuted displaced fracture, medial malleolus fracture, and syndesmosis disruption repair is noted with hardware in place. The fractures are reduced in anatomic position ankle mortise is rectus. There are no acute injuries. The hardware has been placed in the desired trajectory and position. A pain management consultation was requested. Operations: - - Open reduction internal fixation right ankle fracture performed during this admission Procedures: - - Right lower extremity regional block x2 Summary of Care Provided: The patient is a 24 year old M who sustained an injury on 07-29-2019 after he fell from a height of over 20 feet while he was working in his barn. He sustained a closed displaced fibula diaphysis fracture, medial malleolus fracture, and syndesmosis disruption. This was reduced and splinted in the emergency room. He had surgical repair on 07-31-2019 and was admitted postoperatively. He had a regional anesthesia block preoperatively. Pain management was the primary goal of this hospital admission and he was taken through serial progression of pain medication adjustments including dosage and type. His pain was uncontrolled initially. This patient did also have a second right lower extremity regional block performed on day #1 after surgery. This did help temporarily with pain. He was subsequently stabilized with elevation, ice, Dilaudid PIPE MAKER pump, Toradol, oxycodone, and Neurontin. He was also screened and evaluated clinically for any signs of infection, compartment syndrome, blood clot, or isolated neuritis in which these conditions were not suspected. I did reach out to see if a pain management consultation was formally available over the weekend. It is noted pain specialist was not in town however the case was briefly reviewed via phone. Dr. Glover, relates he would be happy to see the patient as a formal consultation if he is still in house on this upcoming Sunday. It is noted during his hospital admission, his mother did reach out separately to other various staff including anesthesiologist, Dr. Lunsford. Only upon being informed of Mr. Palmer's updated status, did I provide serial progression of his current medications and treatment plan. I did also review the case with Dr. Lunsford verbally via phone just prior to his second regional block and also the following day after I was informed by Dr. Lunsford that his mother reached him directly again. Mr. Palmer's pain was subsequently stabilized and he was discharged home on oral pain medications only. During his hospitalization, he was also seen by physical therapy. He demonstrated successful use of assistive device to keep a strict nonweightbearing status to the right lower extremity. - Physical Exam Vitals/I&O's: Vital Signs Temp Pulse Resp BP Pulse Ox 98.9 F 81 14 119/61 98 08/03/19 09:59 08/03/19 09:59 08/03/19 09:59 08/03/19 09:59 08/03/19 09:59 Oxygen Flow Rate (L/min) 2 Oxygen Delivery Method Room Air Weight: 73.6 kg Body Mass Index (BMI) 25.4 Intake and Output for Last 24 Hours 08/01/19 08/02/19 08/04/19 23:59 23:59 00:59 Intake Total 2009 500 / 500 987.25 / 987.25 Output Total 400 / 800 2009 Balance 1610 / 1210 -1510 / -1510 987.25 / 987.25 General: Alert, Oriented x3, Cooperative HEENT: Atraumatic, PERRLA, EOMI Oral: Moist Mucosa Lungs: Clear to auscultation, Normal air movement Cardiovascular: Regular rate, Regular Rhythm Extremities: No cyanosis, Capillary Refill Less than 3 Seconds - All digits right foot, No Calf Tenderness, Edema - Mild surgical limb, Peripheral Pulses Normal - 2/4 PT and DP pulse bilateral lower extremity Skin: Incision - Well aligned and coapted to medial lateral right ankle. There is no gapping, necrosis, erythema or signs of infection to the right lower extremity. The soft tissue or skin of the right lower extremity are not taut and the compartments remain soft. Musculoskeletal: No Muscle Wasting, - - Negative Angela and Verdugo sign bilateral. Active range of motion digits x5 right Neurological: Sensory exam intact to light touch and pain - Foot and ankle dermatomes of the right lower extremity Psych/Mental Status: Normal Affect, Appropriate Current Medications Bisacodyl (Dulcolax) 10 mg PO .X1 PRN PRN PRN Reason: See label comments Last Admin: 08/02/19 18:22 Dose: 10 mg Documented by: Diphenhydramine HCl (Benadryl) 12.5 - 25 mg PO Q6H PRN PRN PRN Reason: Pruritis Docusate Sodium (Colace) 100 mg PO BID PRN PRN PRN Reason: Constipation Last Admin: 08/02/19 21:12 Dose: 100 mg Documented by: Famotidine (Pepcid) 20 mg PO BID [facility] Last Admin: 08/03/19 07:49 Dose: 20 mg Documented by: Gabapentin (Neurontin) 200 mg PO TIDCM [facility] Last Admin: 08/03/19 07:48 Dose: 200 mg Documented by: Hydromorphone HCl (Dilaudid Mold Bunch Trimmer) 20 mg IV [facility] [place]; Protocol Last Admin: 08/02/19 12:36 Dose: 20 mg Documented by: Naloxone HCl 4 mg/ Dextrose 504 mls @ 0 mls/hr IV .Q0M PRN; Protocol PRN Reason: To maintain Resp. rate >10 Sodium Chloride () 250 mls @ 15 mls/hr IV .[id number] PRN PRN Reason: Saline Flush Last Admin: 08/03/19 03:38 Dose: 15 mls/hr Documented by: Sodium Chloride () 250 mls @ 15 mls/hr IV .[id number] PRN PRN Reason: Additional IVPB Infusion Ketorolac Tromethamine (Toradol (Bkc)) 30 mg IV Q8H PRN PRN PRN Reason: Pain Score 1-10/10 Stop: 08/04/19 06:34 Last Admin: 08/02/19 16:58 Dose: 30 mg Documented by: Lorazepam (Ativan) 1 mg PO Q12H PRN PRN PRN Reason: ANXIETY Last Admin: 08/02/19 09:19 Dose: 1 mg Documented by: Naloxone HCl (Narcan) 0.02 mg IV Q1M PRN PRN Reason: RR <10 and pt unresponsive Ondansetron HCl (Zofran) 4 mg IV Q8H PRN PRN PRN Reason: Nausea Last Admin: 08/01/19 05:57 Dose: 4 mg Documented by: Oxycodone HCl (Oxyir) 5 mg PO Q6H PRN PRN PRN Reason: Pain Score 6-10/10 Last Admin: 08/02/19 14:41 Dose: 5 mg Documented by: Sodium Chloride () 10 - 40 ml IV UD PRN PRN Reason: SALINE FLUSH Last Admin: 08/02/19 16:58 Dose: 10 ml Documented by: Discharge Diet: No Restrictions Discharge Activity: May not drive while taking narcotic pain medications., May Not Shower - unless using shower bag, Use Walker, Use Crutches, - - Use knee roller Weight Bearing Status: No weight bearing Keep extremity elevated above heart level: Right Leg Call your doctor if your incision/area has: Continuous Slow Oozing, Sudden Increased Bleeding, Increased Pain/ Swelling, Increased Redness, Foul Smelling Discharge, Swelling at the incision site Call your doctor if you observe: Fever of 101 or Higher, Coldness, Increased Pain, Numbness or Tingling, Shortness of breath, Chest pain, Calf discomfort, Uncontrolled pain Cleanse incision/area with: Keep Dressing Clean & Dry Home Medications: Medications to take at Discharge Oxycodone HCl/Acetaminophen [Percocet 5/325] 1 tab PO Q6H PRN PRN 5 Days #20 tab 07/29/19 Naproxen 500 mg PO BID 7 Days #14 tab 08/01/19 Oxycodone HCl/Acetaminophen [Percocet 10-325 mg Tablet] 1 tab PO Q6H PRN PRN 5 Days #30 tab 08/01/19 Docusate Sodium 100 mg PO BID PRN 10 Days #20 cap 08/03/19 Gabapentin [Neurontin] 200 mg PO TID 10 Days #30 cap 08/03/19 Following Prescrptions Were Given to Patient: Docusate Sodium 100 mg PO BID PRN 10 Days #20 cap PRN Reason: Constipation Transmission Status: Received by [id number] Naproxen 500 mg PO BID 7 Days #14 tab Transmission Status: Sent to [facility] Gabapentin [Neurontin] 200 mg PO TID 10 Days #30 cap Transmission Status: Received by [id number] Oxycodone HCl/Acetaminophen [Percocet 10-325 mg Tablet] 1 tab PO Q6H PRN PRN 5 Days #30 tab PRN Reason: Pain Score 6-03/06 Transmission Status: Sent to [facility] Primary Care Physician: Lamin Duque [Primary Care Provider] - Please Follow Up With: Precious Portillo DPM When: 1 week. Call [facility] at [phone] sooner if concerns. Disposition: Home Patient Condition:: Good Medical Necessity - Tobacco Use Smoking Status: Never smoker Tobacco Use: Non-smoker Meaningful Use Info Meaningful Use Diagnoses (Choose all that apply): None applicable
[2019-08-03] MEDS: Docusate Sodium 100 MG Capsule PO (11:05)
[2019-08-03] MEDS: HYDROmorphone PCA 0.2 MG/ML 100 ML BAG 20 MG IV (13:51)
[2019-08-03] MEDS: Ketorolac 30 MG/ML Syringe IV (15:36)
--- NOTE | 2019-08-03 18:28 | NURSING ---
Spoke with Dr Cardona, stating pt is desiring to go home, has not used dilaudid pump for several hours. She said to dc the infusion now, and she would enter orders for it.
[2019-08-03] MEDS: oxyCODONE 5 MG Tablet PO (18:35)
[2019-08-04 19:27] LABS: Vitamin D 1,25-Dihydroxy 34.9 pg/mL (19.9-79.3)
== END 2019-08-03 20:38 | disposition home or self-care (01) | DRG 494 ==
LOC: SDC 17:18 → MS3 08-01 07:24
PROVIDERS: Anesthesiology; Admitting Provider Podiatrist; PCP Family Medicine; Referring Provider Podiatrist; Visit Provider Podiatrist
PROC: 0QSJ04Z Reposition Right Fibula with Internal Fixation Device, Open Approach (ICD-10-PCS; principal; 2019-07-31 12:40)
PROC: 3E0T3BZ Introduction of Anesthetic Agent into Peripheral Nerves and Plexi, Percutaneous Approach (ICD-10-PCS; principal; 2019-08-01 07:00)
DX: S82.451A Displaced comminuted fracture of shaft of right fibula, initial encounter for closed fracture (principal); S82.51XA Displaced fracture of medial malleolus of right tibia, initial encounter for closed fracture; S93.431A Sprain of tibiofibular ligament of right ankle, initial encounter; W11.XXXA Fall on and from ladder, initial encounter; Y92.71 Barn as the place of occurrence of the external cause
CPT/HCPCS: 36415; 73610; 76000; 82652; 94762; 97161; 99251; C1713; J7050; J7120; A4216; G0463; J1170; J2405